=== PATIENT | male | born 1985 | race Two or more races ===

== ENCOUNTER 2022-05-24 18:41 | Outpatient (CLI) | payer OTHER | END 2022-05-24 23:55 | disposition home or self-care (01) | LOC: LAB 18:41 | DX: Z20.828 Contact with and (suspected) exposure to other viral communicable diseases (principal); Z20.818 Contact with and (suspected) exposure to other bacterial communicable diseases ==

== ENCOUNTER 2022-11-26 09:18 | Emergency (ER) | payer OTHER ==
[~2022-11-26] VITALS: Ht 172.7 cm; Wt 77.1 kg
== END 2022-11-26 13:35 | disposition home or self-care (01) ==
LOC: ER 09:18
DX: H60.8X1 Other otitis externa, right ear (principal)